=== PATIENT | male | born 1965 | race American Indian/Alaskan Native ===

== ENCOUNTER 2021-06-28 00:01 | Emergency (ER) | payer SELFPAY ==
[2021-06-28] MEDS ORDERED: PENICILLIN G BENZATHINE 1.2 MILLION UNIT/2 ML INJ IM ONE (01:22)
--- NOTE | 2021-06-28 01:28 | Emergency Department Report ---
ED Male HPI - General Chief complaint: Urogenital-Female Stated complaint: MEDICATION Time Seen by Provider: 06/28/21 01:18 Source: patient Mode of arrival: Ambulatory Limitations: No Limitations - History of Present Illness Initial comments: Patient 56-year-old male who presents for STI states syphilis. States brown spots to palmar hands and soles of both feet. Glans penis. Patient states unprotected sex 1 week ago. Patient states history of syphilis. There is no fevers no chills no nausea no vomiting no abdominal pain. Patient denies dysur ia frequency or urgency. There is no penile discharge. Ulcers are nonpainful. - Related Data Previous Rx's Medication Instructions Recorded Last Taken Type Doxycycline Hyclate 100 mg PO BID 7 Days #14 tab 06/28/21 Unknown Rx Allergies Allergy/AdvReac Type Severity Reaction Status Date / Time No Known Allergies Allergy Verified 06/28/21 00:49 ED Review of Systems ROS: Stated complaint: MEDICATION Other details as noted in HPI Constitutional: denies: chills, fever Eyes: denies: eye pain, eye discharge, vision change ENT: denies: ear pain, throat pain Respiratory: denies: cough, shortness of breath, wheezing Cardiovascular: denies: chest pain, palpitations Endocrine: no symptoms reported Gastrointestinal: denies: abdominal pain, nausea, diarrhea Genitourinary: other (round dry ulcers nonpainful to gland penis ). denies: urgency, dysuria, frequency, hematuria, discharge Musculoskeletal: denies: back pain, joint swelling, arthralgia Skin: other (brown rash to palm of hand and feet ). denies: rash, lesions Neurological: denies: headache, weakness, paresthesias Psychiatric: denies: anxiety, depression Hematological/Lymphatic: denies: easy bleeding, easy bruising ED Past Medical Hx - Past Medical History Previous Medical History?: No - Surgical History Past Surgical History?: No - Medications Home Medications: Home Medications Medication Instructions Recorded Confirmed Last Taken Type Doxycycline Hyclate 100 mg PO BID 7 Days #14 tab 06/28/21 Unknown Rx ED Physical Exam - General Limitations: No Limitations General appearance: alert, in no apparent distress - Head Head exam: Present: atraumatic, normocephalic - Eye Eye exam: Present: normal appearance, EOMI Pupils: Present: normal accommodation - ENT ENT exam: Present: mucous membranes moist - Neck Neck exam: Present: normal inspection, full ROM. Absent: tenderness - Respiratory Respiratory exam: Present: normal lung sounds bilaterally. Absent: respiratory distress, wheezes - Cardiovascular Cardiovascular Exam: Present: regular rate, normal rhythm, normal heart sounds. Absent: systolic murmur, diastolic murmur, rubs, gallop - GI/Abdominal GI/Abdominal exam: Present: soft, normal bowel sounds. Absent: distended, tenderness - Rectal Rectal exam: Present: deferred - Extremities Exam Extremities exam: Present: full ROM, normal capillary refill, other (rash bilat hands vizcarra, feet plantar no erythem no pain no weeping ). Absent: tenderness - Back Exam Back exam: Present: normal inspection, full ROM. Absent: CVA tenderness (R), CVA tenderness (L) - Neurological Exam Neurological exam: Present: alert, oriented X3, CN II-XII intact, reflexes normal. Absent: motor sensory deficit - Expanded Neurological Exam Expanded Patient oriented to: Present: person, place, time Speech: Present: fluid speech Cranial nerves: EOM's Intact: Normal Sensory exam: Upper Extremity Light Touch: Normal, Upper Extremity Pin Prick: Normal, Upper Extremity Temperature: Normal, Lower Extremity Light Touch: Normal, Lower Extremity Pin Prick: Normal, Lower Extremity Temperature: Normal, LE 2 Point Discrimination: Normal Motor strength exam: RUE: 5, LUE: 5, RLE: 5, LLE: 5 Best Eye Response ([place]): (4) open spontaneously Best Motor Response ([place]): (6) obeys commands Best Verbal Response ([place]): (5) oriented [place] Total: 15 - Psychiatric Psychiatric exam: Present: normal affect - Skin Skin exam: Present: warm, dry, intact, normal color, other (brown spotty rash palm of bilat hand & Feet, no wheeping no fever no erythema, ). Absent: rash ED Course Vital Signs 06/28/21 00:48 Temperature 98.0 F Pulse Rate 67 Respiratory 20 Rate Blood Pressure 112/65 O2 Sat by Pulse 97 Oximetry ED Medical Decision Making - Medical Decision Making Patient treated for syphilis, there are no neurodeficits, there is no open wounds or lesions or pain. Plan patient will follow-up with health department tomorrow for HSV screening, there is no dysuria frequency or urgency there is no hematuria there is no fevers no chills no nausea or vomiting patient declines culture swab for GC chlamydia. Critical care attestation.: If time is entered above; I have spent that time in minutes in the direct care of this critically ill patient, excluding procedure time. ED Disposition Clinical Impression: STI (sexually transmitted infection) Disposition: 01 HOME / SELF CARE / HOMELESS Is pt being admited?: No Does the pt Need Aspirin: No Condition: Stable Instructions: Syphilis Additional Instructions: follow up with health department tomorrow for HSV and HIV screening. Prescriptions: Doxycycline Hyclate 100 mg PO BID 7 Days #14 tab Forms: Work/School Release Form(ED) Time of Disposition: 01:57
[2021-06-28 02:09] VITALS: BP 119/76
== END 2021-06-28 02:11 | disposition home or self-care (01) ==
LOC: ED 00:01
DX: A64 Unspecified sexually transmitted disease (principal)
CPT/HCPCS: 96372; 99282; J0561